=== PATIENT | female | born 1960 | race Hispanic/Latino ===

== ENCOUNTER 2016-08-29 16:35 | Emergency (ER) | payer OTHER ==
[2016-08-29] MEDS ORDERED: NACL 0.9% 1000 ML 1,000 ML ONE (17:27)
[2016-08-29 18:52] LABS: Basophils % (Auto) 1.3 % (0.0-1.8); Eosinophils % (Auto) 3.4 % (0.0-4.3); Hematocrit 42.4 % (30.3-42.9); Hemoglobin 14.2 gm/dl (10.1-14.3); Mean Corpuscular HGB Conc 33 % (30-34); Mean Corpuscular Hemoglobin 27 pg (28-32); Mean Corpuscular Volume 82 fl (79-97); Platelet Count 304 K/mm3 (140-440); Red Blood Count 5.19 M/mm3 (3.65-5.03); Red Cell Distribution Width 13.3 % (13.2-15.2); White Blood Count 7.6 K/mm3 (4.5-11.0)
[2016-08-29 18:55] LABS: Anion Gap 22 mmol/L; Blood Urea Nitrogen 14 mg/dL (7-17); Calcium 9.8 mg/dL (8.4-10.2); Carbon Dioxide 25 mmol/L (22-30); Chloride 93.8 mmol/L (98-107); Glucose 349 mg/dL (65-100); Potassium 4.3 mmol/L (3.6-5.0); Sodium 136 mmol/L (137-145)
[2016-08-29 18:56] LABS: Bilirubin,Urine NEG (Negative); Blood,Urine NEG (Negative); Ketones,Urine NEG (Negative); Leukocyte Esterase,Urine NEG (Negative); Nitrite,Urine NEG (Negative); Urobilinogen,Urine < 2.0 mg/dL (<2.0)
[2016-08-30] MEDS ORDERED: NACL 0.9% 1000 ML 1,000 ML IV ONE (06:02)
[2016-08-30 06:21] VITALS: BP 130/69
[2016-08-30] MEDS ORDERED: BENTYL IM ONE (09:01)
--- NOTE | 2016-08-30 09:07 | Emergency Department Report ---
ED General Adult HPI - General Chief complaint: Hyperglycemia Stated complaint: ELEVATED BS Time Seen by Provider: 08/30/16 08:50 Source: patient, RN notes reviewed Mode of arrival: Ambulatory Limitations: No Limitations - History of Present Illness Initial comments: This is a 56-year-old female. She is previously unknown to me. She currently does not have a primary care doctor. Patient was previously on diabetic maintenance medication ( trulicity) but reports is secondary to a change in insurance last year, she has not been able to receive it. The patient presents to the ER for hyperglycemia. She reports not having diabetes medications for a while. She reports not be on medications for at least 5 or 6 months. She presents the ER with hyperglycemia, abdominal cramping, and calf cramping. There is no chest pain. There is no shortness of breath. There is no vomiting. No irritative or genitourinary symptoms. She reports her fingersticks have been in the 500s at home. Her symptoms do not have any exacerbating or relieving factors. -: Gradual Location: abdomen, left, right, lower extremity Severity scale (0 -10): 0 Quality: aching Consistency: intermittent Improves with: none Worsens with: none Associated Symptoms: denies: confusion, chest pain, loss of appetite - Related Data Home Medications Medication Instructions Recorded Confirmed Last Taken Levothyroxine Sodium [Synthroid] 1 tab PO DAILY 07/19/13 08/30/16 1 Day Ago Previous Rx's Medication Instructions Recorded Last Taken Type Dicyclomine [Bentyl] 10 mg PO QID PRN #20 capsule 08/30/16 Unknown Rx Ondansetron [Zofran Odt] 4 mg PO QID PRN #20 tab.rapdis 08/30/16 Unknown Rx metFORMIN [Glucophage] 500 mg PO QDAY #30 tab 08/30/16 Unknown Rx Allergies Allergy/AdvReac Type Severity Reaction Status Date / Time No Known Allergies Allergy Verified 08/29/16 17:53 ED Review of Systems ROS: Stated complaint: ELEVATED BS Other details as noted in HPI Constitutional: malaise. denies: fever Eyes: denies: vision change ENT: denies: epistaxis Respiratory: cough Cardiovascular: denies: chest pain Gastrointestinal: denies: vomiting Genitourinary: denies: dysuria Musculoskeletal: arthralgia Skin: denies: rash, lesions Neurological: denies: headache ED Past Medical Hx - Past Medical History Previous Medical History?: Yes Hx GERD: Yes - Surgical History Past Surgical History?: Yes Hx Pacemaker: Yes (2004) - Social History Smoking Status: Never Smoker Substance Use Type: None - Medications Home Medications: Home Medications Medication Instructions Recorded Confirmed Last Taken Type Levothyroxine Sodium [Synthroid] 1 tab PO DAILY 07/19/13 08/30/16 1 Day Ago History Dicyclomine [Bentyl] 10 mg PO QID PRN #20 capsule 08/30/16 Unknown Rx Ondansetron [Zofran Odt] 4 mg PO QID PRN #20 tab.rapdis 08/30/16 Unknown Rx metFORMIN [Glucophage] 500 mg PO QDAY #30 tab 08/30/16 Unknown Rx ED Physical Exam - General Limitations: No Limitations General appearance: alert, in no apparent distress - Head Head exam: Present: atraumatic, normocephalic - Eye Eye exam: Present: normal appearance, EOMI. Absent: nystagmus - ENT ENT exam: Present: normal exam, normal orophraynx, mucous membranes moist, normal external ear exam - Neck Neck exam: Present: normal inspection, full ROM. Absent: tenderness, meningismus - Respiratory Respiratory exam: Present: normal lung sounds bilaterally. Absent: respiratory distress, wheezes, rales, rhonchi, stridor, chest wall tenderness, accessory muscle use, decreased breath sounds, prolonged expiratory - Cardiovascular Cardiovascular Exam: Present: regular rate, normal rhythm, normal heart sounds. Absent: bradycardia, tachycardia, irregular rhythm, systolic murmur, diastolic murmur, rubs, gallop - GI/Abdominal GI/Abdominal exam: Present: soft, normal bowel sounds. Absent: distended, tenderness, guarding, rebound, rigid, pulsatile mass - Extremities Exam Extremities exam: Present: normal inspection, full ROM, normal capillary refill. Absent: tenderness, pedal edema, joint swelling, calf tenderness - Back Exam Back exam: Present: normal inspection, full ROM. Absent: tenderness, CVA tenderness (R), CVA tenderness (L), muscle spasm, paraspinal tenderness, vertebral tenderness - Neurological Exam Neurological exam: Present: alert, oriented X3, normal gait, other (Extraocular movements intact. Tongue midline. No facial droop. Facial sensation intact to light touch in the V1, V2, V3 distribution bilaterally. 5 and 5 strength in 4 extremities.. Sensation is intact to light touch in 4 extremities.). Absent : motor sensory deficit - Psychiatric Psychiatric exam: Present: normal affect, normal mood - Skin Skin exam: Present: warm, dry, intact, normal color. Absent: rash ED Course Vital Signs 08/29/16 08/30/16 08/30/16 17:53 03:19 05:38 Temperature 98.4 F Pulse Rate 78 78 70 Respiratory 16 14 17 Rate Blood Pressure 138/92 143/98 Blood Pressure [Right] O2 Sat by Pulse 96 98 99 Oximetry 08/30/16 08/30/16 08/30/16 05:41 05:51 05:54 Temperature Pulse Rate 73 64 Respiratory 12 14 18 Rate Blood Pressure 167/94 167/94 Blood Pressure [Right] O2 Sat by Pulse 100 97 Oximetry 08/30/16 08/30/16 06:01 06:19 Temperature 98.7 F Pulse Rate 66 60 Respiratory 14 13 Rate Blood Pressure 167/94 Blood Pressure 130/69 [Right] O2 Sat by Pulse 99 98 Oximetry ED Medical Decision Making - Lab Data Result diagrams: 08/29/16 18:23 08/29/16 18:23 Vital Signs 08/29/16 08/30/16 08/30/16 17:53 03:19 05:38 Temperature 98.4 F Pulse Rate 78 78 70 Respiratory 16 14 17 Rate Blood Pressure 138/92 143/98 Blood Pressure [Right] O2 Sat by Pulse 96 98 99 Oximetry 08/30/16 08/30/16 08/30/16 05:41 05:51 05:54 Temperature Pulse Rate 73 64 Respiratory 12 14 18 Rate Blood Pressure 167/94 167/94 Blood Pressure [Right] O2 Sat by Pulse 100 97 Oximetry 08/30/16 08/30/16 06:01 06:19 Temperature 98.7 F Pulse Rate 66 60 Respiratory 14 13 Rate Blood Pressure 167/94 Blood Pressure 130/69 [Right] O2 Sat by Pulse 99 98 Oximetry Lab Results 08/29/16 08/29/16 08/29/16 Range/Units 17:52 18:23 18:23 WBC 7.6 (4.5-11.0) K/mm3 RBC 5.19 H (3.65-5.03) M/mm3 Hgb 14.2 (10.1-14.3) gm/dl Hct 42.4 (30.3-42.9) % MCV 82 (79-97) fl MCH 27 L (28-32) pg MCHC 33 (30-34) % RDW 13.3 (13.2-15.2) % Plt Count 304 (140-440) K/mm3 Lymph % (Auto) 41.4 H (13.4-35.0) % [place] % (Auto) 5.0 (0.0-7.3) % Eos % (Auto) 3.4 (0.0-4.3) % Baso % (Auto) 1.3 (0.0-1.8) % Lymph # 3.2 (1.2-5.4) K/mm3 [place] # 0.4 (0.0-0.8) K/mm3 Eos # 0.3 (0.0-0.4) K/mm3 Baso # 0.1 (0.0-0.1) K/mm3 Seg Neutrophils % 48.9 (40.0-70.0) % Seg Neutrophils # 3.7 (1.8-7.7) K/mm3 VBG pH (7.320-7.420) Sodium 136 L (137-145) mmol/L Potassium 4.3 (3.6-5.0) mmol/L Chloride 93.8 L (98-107) mmol/L Carbon Dioxide 25 (22-30) mmol/L Anion Gap 22 mmol/L BUN 14 (7-17) mg/dL Creatinine 0.8 (0.7-1.2) mg/dL Estimated GFR > 60 ml/min BUN/Creatinine Ratio 17.50 % Glucose 349 H (65-100) mg/dL POC Glucose 342 H (70-105) Calcium 9.8 (8.4-10.2) mg/dL Urine Color (Yellow) Urine Turbidity (Clear) Urine pH (5.0-7.0) Ur Specific [place] (1.003-1.030) Urine Protein (Negative) mg/dL Urine Glucose (UA) (Negative) mg/dL Urine Ketones (Negative) mg/dL Urine Blood (Negative) Urine Nitrite (Negative) Urine Bilirubin (Negative) Urine Urobilinogen (<2.0) mg/dL Ur Leukocyte Esterase (Negative) Urine WBC (Auto) (0.0-6.0) /HPF Urine RBC (Auto) (0.0-6.0) /HPF U Epithel Cells (Auto) (0-13.0) /HPF 08/29/16 08/29/16 08/30/16 Range/Units 18:23 18:34 05:50 WBC (4.5-11.0) K/mm3 RBC (3.65-5.03) M/mm3 Hgb (10.1-14.3) gm/dl Hct (30.3-42.9) % MCV (79-97) fl MCH (28-32) pg MCHC (30-34) % RDW (13.2-15.2) % Plt Count (140-440) K/mm3 Lymph % (Auto) (13.4-35.0) % [place] % (Auto) (0.0-7.3) % Eos % (Auto) (0.0-4.3) % Baso % (Auto) (0.0-1.8) % Lymph # (1.2-5.4) K/mm3 [place] # (0.0-0.8) K/mm3 Eos # (0.0-0.4) K/mm3 Baso # (0.0-0.1) K/mm3 Seg Neutrophils % (40.0-70.0) % Seg Neutrophils # (1.8-7.7) K/mm3 VBG pH 7.329 (7.320-7.420) Sodium (137-145) mmol/L Potassium (3.6-5.0) mmol/L Chloride (98-107) mmol/L Carbon Dioxide (22-30) mmol/L Anion Gap mmol/L BUN (7-17) mg/dL Creatinine (0.7-1.2) mg/dL Estimated GFR ml/min BUN/Creatinine Ratio % Glucose (65-100) mg/dL POC Glucose 416 H (70-105) Calcium (8.4-10.2) mg/dL Urine Color Yellow (Yellow) Urine Turbidity Clear (Clear) Urine pH 5.0 (5.0-7.0) Ur Specific [place] 1.035 H (1.003-1.030) Urine Protein 100 mg/dl (Negative) mg/dL Urine Glucose (UA) >=500 (Negative) mg/dL Urine Ketones Neg (Negative) mg/dL Urine Blood Neg (Negative) Urine Nitrite Neg (Negative) Urine Bilirubin Neg (Negative) Urine Urobilinogen < 2.0 (<2.0) mg/dL Ur Leukocyte Esterase Neg (Negative) Urine WBC (Auto) 2.0 (0.0-6.0) /HPF Urine RBC (Auto) 2.0 (0.0-6.0) /HPF U Epithel Cells (Auto) 4.0 (0-13.0) /HPF 08/30/16 Range/Units 08:38 WBC (4.5-11.0) K/mm3 RBC (3.65-5.03) M/mm3 Hgb (10.1-14.3) gm/dl Hct (30.3-42.9) % MCV (79-97) fl MCH (28-32) pg MCHC (30-34) % RDW (13.2-15.2) % Plt Count (140-440) K/mm3 Lymph % (Auto) (13.4-35.0) % [place] % (Auto) (0.0-7.3) % Eos % (Auto) (0.0-4.3) % Baso % (Auto) (0.0-1.8) % Lymph # (1.2-5.4) K/mm3 [place] # (0.0-0.8) K/mm3 Eos # (0.0-0.4) K/mm3 Baso # (0.0-0.1) K/mm3 Seg Neutrophils % (40.0-70.0) % Seg Neutrophils # (1.8-7.7) K/mm3 VBG pH (7.320-7.420) Sodium (137-145) mmol/L Potassium (3.6-5.0) mmol/L Chloride (98-107) mmol/L Carbon Dioxide (22-30) mmol/L Anion Gap mmol/L BUN (7-17) mg/dL Creatinine (0.7-1.2) mg/dL Estimated GFR ml/min BUN/Creatinine Ratio % Glucose (65-100) mg/dL POC Glucose 362 H (70-105) Calcium (8.4-10.2) mg/dL Urine Color (Yellow) Urine Turbidity (Clear) Urine pH (5.0-7.0) Ur Specific [place] (1.003-1.030) Urine Protein (Negative) mg/dL Urine Glucose (UA) (Negative) mg/dL Urine Ketones (Negative) mg/dL Urine Blood (Negative) Urine Nitrite (Negative) Urine Bilirubin (Negative) Urine Urobilinogen (<2.0) mg/dL Ur Leukocyte Esterase (Negative) Urine WBC (Auto) (0.0-6.0) /HPF Urine RBC (Auto) (0.0-6.0) /HPF U Epithel Cells (Auto) (0-13.0) /HPF - Medical Decision Making Differential diagnosis: Hyperglycemia, urinary tract infection, general medical evaluation Assessment and plan: 56-year-old female who is not on any diabetic medication for months with hyperglycemia. She is afebrile with unremarkable vital signs. Her physical exam is unremarkable, and her laboratory studies are not consistent with anion gap acidosis. It appears that the patient's main issue is primary care. I have instructed the patient to contact her private insurance company, and find a local primary care doctor. The patient reports that she has attempted metformin the past, but does not like it. In any event, given that she has not been on medication for months, I informed the patient that I thought the safest and best course of action was to start her on low- dose metformin. She understands that she needs to follow up, and she understands the side effects include abdominal cramping, nausea, vomiting or diarrhea. She is suitable for discharge at this time, and return precautions are reviewed. Her hyperglycemia is appreciated, this is a chronic problem, and the patient will not benefit from acute decreasing of her blood glucose given that it has been present for months. Critical care attestation.: If time is entered above; I have spent that time in minutes in the direct care of this critically ill patient, excluding procedure time. ED Disposition Clinical Impression: Hyperglycemia Disposition: DC-01 TO HOME OR SELFCARE Is pt being admited?: No Does the pt Need Aspirin: No Condition: Stable Instructions: Diabetic Hyperglycemia (ED) Additional Instructions: Take medications as directed. Follow-up with the primary care doctor within the next 7-10 days to follow up for further care, evaluation and management of your diabetes. Long-term complications of diabetes/hyperglycemia includes stroke, heart attack, disability, , paralysis, loss of quality of life. The metformin medication may cause some side effects, including nausea, vomiting , abdominal cramping and diarrhea. However, it is a very effective medication for diabetes, and has many beneficial effects. Therefore, do your best to tolerate the medication. Please return to the ER right away with fevers, chills, chest pain, shortness of breath, confusion, intractable nausea or vomiting, inability to tolerate liquid feeds. Prescriptions: Dicyclomine [Bentyl] 10 mg PO QID PRN #20 capsule PRN Reason: Pain metFORMIN [Glucophage] 500 mg PO QDAY #30 tab Ondansetron [Zofran Odt] 4 mg PO QID PRN #20 tab.rapdis PRN Reason: Nausea Referrals: PRIMARY CAREMD [Primary Care Provider] - 3-5 Days MG CHUNG MD [Staff Physician] - 3-5 Days [facility] [Provider Group] - 3-5 Days DOMINIC MCGHEE MD [Staff Physician] - 3-5 Days Forms: Work/School Release Form(ED)
== END 2016-08-30 09:32 | disposition home or self-care (01) ==
LOC: ED 16:35
DX: R73.9 Hyperglycemia, unspecified (principal); R10.9 Unspecified abdominal pain; M79.662 Pain in left lower leg; M79.661 Pain in right lower leg; K21.9 Gastro-esophageal reflux disease without esophagitis; Z96.89 Presence of other specified functional implants
CPT/HCPCS: 36415; 80048; 81001; 82805; 82962; 85025; 96360; 96361; 96372; 99284; J0500; J7030

== ENCOUNTER 2017-09-03 08:59 | Day surgery (SDC) | payer OTHER ==
--- NOTE | 2017-09-03 10:37 | Anesthesia Consultation ---
Anesthesia Consult and Med Hx Date of service: 09/03/17 - Airway Anesthetic Teeth Evaluation: Good ROM Head & Neck: Adequate Mental/Hyoid Distance: Adequate Mallampati Class: Class I Intubation Access Assessment: Good - Pulmonary Exam CTA: Yes - Cardiac Exam Cardiac Exam: RRR - Pre-Operative Health Status ASA Pre-Surgery Classification: ASA3 Proposed Anesthetic Plan: General - Pre-Anesthesia Comment Pre-Anesthesia Comments: 57y F with h/o SSS s/p PPM, IDDM, hypothyroidism, who presents for hysteroscopy with D&C. EKG - NSR, poss old septal infarct. TTE () - LVEF 60-65%, diastolic dysfunction, nl RV. Nuc Stress (12/2016) - LVEF 70%, possible prior infarct in LAD territory though possible artifact; no ischemia - Pulmonary Hx Smoking: No Hx Asthma: No Hx Sleep Apnea: Yes (No CPAP) - Cardiovascular System Hx Hypertension: No Hx Coronary Artery Disease: No Hx Pacemaker: Yes (SSS) - Central Nervous System Hx Seizures: No CVA: No Hx Psychiatric Problems: No - Gastrointestinal Hx Gastroesophageal Reflux Disease: Yes - Endocrine Hx Renal Disease: No Hx Liver Disease: No Hx Insulin Dependent Diabetes: Yes Hx Hypothyroidism: Yes - Other Systems Hx Cancer: No
--- NOTE | 2017-09-03 10:39 | Anesthesia Day of Surgery ---
Anesthesia Day of Surgery - Day of Surgery Patient Examined: Yes Patient H&P Reviewed: Yes Patient is NPO: Yes Beta Blockers: No Cardiac Clearance: Yes Pulmonary Clearance: Yes Ronen's Test: N/A
[2017-09-03 10:54] LABS: Basophils % (Auto) 0.5 % (0.0-1.8); Eosinophils # (Auto) 0.2 K/mm3 (0.0-0.4); Eosinophils % (Auto) 2.2 % (0.0-4.3); Hematocrit 39.6 % (30.3-42.9); Hemoglobin 13.3 gm/dl (10.1-14.3); Lymphocytes # (Auto) 2.2 K/mm3 (1.2-5.4); Lymphocytes % (Auto) 32.7 % (13.4-35.0); Mean Corpuscular HGB Conc 34 % (30-34); Mean Corpuscular Hemoglobin 27 pg (28-32); Mean Corpuscular Volume 80 fl (79-97); Monocytes # (Auto) 0.4 K/mm3 (0.0-0.8); Monocytes % (Auto) 6.6 % (0.0-7.3); Platelet Count 298 K/mm3 (140-440); Red Blood Count 4.97 M/mm3 (3.65-5.03); Red Cell Distribution Width 13.9 % (13.2-15.2)
[2017-09-03] MEDS ORDERED: LACTATED RINGERS 1,000 ML IV SCH ×2 (11:00→15:00)
[2017-09-03] MEDS ORDERED: PEPCID PO NR (11:00)
[2017-09-03] MEDS ORDERED: VERSED IV NR (11:00)
[2017-09-03] MEDS ORDERED: XYLOCAINE MPF 2% ONE (11:34)
[2017-09-03] MEDS ORDERED: SUBLIMAZE ONE (11:34)
[2017-09-03] MEDS ORDERED: DIPRIVAN 10 MG/ML IV ONE ×2 (11:35→12:25)
[2017-09-03] MEDS ORDERED: NACL 0.9% IR ONE (12:17)
[2017-09-03] MEDS ORDERED: ZOFRAN ONE ×2 (12:40→14:00)
[2017-09-03] MEDS ORDERED: TORADOL ONE (12:40)
--- NOTE | 2017-09-03 13:25 | Operative Report ---
Operative Report Operative Report: Preoperative diagnosis: Thickened endometrial lining. Postoperative diagnosis: 1. Thickened endometrial lining. 2. Endometrial polyp. Procedure: 1. Hysteroscopy 2. D&C 3. Endometrial polypectomy Surgeon; Dr. Weinstein Blending Line Attendant: none Anesthesia: IV sedation with MAC. IV fluids: Ringers Lactate 1 L EBL: Minimal Procedure details: Risks, benefits, and alternatives of the procedure were discussed in detail with the patient was included but not limited to the risk of infection, hemorrhage requiring blood transfusion, and uterine perforation. The patient expressed understanding, her questions were answered, and she gave informed consent. The patient was taken to the operating room with an IV fluid infusing Ringers lactate. The operating room, she was placed in a dorsal supine position and given IV sedation with MAC. She was then placed on the stirrups in a dorsolithotomy position. The perineum, vagina, and cervix were washed and she was prepared and draped in usual sterile fashion. Examination under anesthesia revealed normal external genitalia, vagina, and cervix. The uterus was 7-week size mobile, the adnexae were nonpalpable. A weighted speculum was placed on the posterior vaginal wall and the anterior lip of the cervix was grasped with a single-tooth tenaculum. Endocervical curettage was done. The cervical os was dilated and hysteroscope was introduced into the uterine cavity. It revealed a mildly atrophic endometrial canal with a small polyp. Polyp forceps was used to remove the polyp. Gentle curettage was performed until a gritty texture was noticed. The specimen which included ECC, EMC, endometrial polyps were sent to pathology. The instruments were then removed from the uterine cavity. The counts of laps, needles, sponges and instruments were correct 2. The patient tolerated the procedure well. She was awakened from the anesthesia and taken to the recovery room in stable condition.
[2017-09-03] MEDS ORDERED: ZOFRAN IV NR (14:03)
[2017-09-03] MEDS ORDERED: TRANSDERM-SCOP TD ONE (14:40)
[2017-09-03] MEDS ORDERED: PHENERGAN PO SCH (14:41)
[2017-09-03] MEDS ORDERED: BENADRYL IV SCH (14:42)
[2017-09-03 16:19] VITALS: BP 128/72
== END 2017-09-03 15:51 | disposition home or self-care (01) ==
LOC: OR 08:59
PROVIDERS: ATTEND Obstetrics & Gynecology
DX: N84.0 Polyp of corpus uteri (principal); I49.5 Sick sinus syndrome; G47.30 Sleep apnea, unspecified; K21.9 Gastro-esophageal reflux disease without esophagitis; E03.9 Hypothyroidism, unspecified; E11.9 Type 2 diabetes mellitus without complications; Z95.0 Presence of cardiac pacemaker; Z79.899 Other long term (current) drug therapy; Z98.890 Other specified postprocedural states
CPT/HCPCS: 36415; 58558; 82962; 85025; 88305; J1200; J1885; J2405; J2704; J3010; J7120; Q0169